=== PATIENT | male | born 1945 | race Hispanic/Latino ===

== ENCOUNTER 2023-10-19 08:50 | Day surgery (SDC) | payer OTHER ==
[2023-10-19] VITALS (16 sets, daily range): BP systolic 74–118; BP diastolic 43–61; PULSE 75–85; RESP 15–16
[~2023-10-19] VITALS: Ht 167.6 cm; Wt 135.2 kg
[~2023-10-19 08:50] MED LIST: 0.9%NACL 1000ML 1,000 ML IV ONE
[2023-10-19] MEDS ORDERED: ATOR10 PO (12:21)
[2023-10-19] MEDS ORDERED: SERT-440 PO (12:21)
[2023-10-19] MEDS ORDERED: CHOL2000 PO (12:21)
[2023-10-19] MEDS ORDERED: CYAN-106 PO (12:21)
[2023-10-19] MEDS ORDERED: TRAM50TA4 PO (12:21)
[2023-10-19] MEDS ORDERED: LOSA100T59 PO (12:21)
[2023-10-19] MEDS ORDERED: FAMO40TA7 PO (12:21)
[2023-10-19] MEDS ORDERED: BUSP15TA3 PO (12:21)
[2023-10-19] MEDS ORDERED: EMPA25TA PO (12:21)
[2023-10-19] MEDS ORDERED: LEVO125T95 PO (12:21)
[2023-10-19] MEDS ORDERED: SEMA2PEN SQ (12:21)
[2023-10-19] MEDS ORDERED: CLOB30CR4 TP (12:21)
[2023-10-19] MEDS ORDERED: METF-527 PO (12:21)
[2023-10-19] MEDS ORDERED: CHLO25TA3 PO (12:21)
[2023-10-19] MEDS ORDERED: TRAZ-187 PO (12:21)
[2023-10-19] MEDS ORDERED: PROPOFOL 10 MG/ML 20ML VIAL IV ONE ×2 (13:02)
[2023-10-19] MEDS ORDERED: EPHEDRINE SULFATE 50 MG/ML AMPULE ONE (13:06)
[2023-10-19] MEDS: EPHEDRINE SULFATE 50 MG/ML AMPULE ONE (13:50)
== END 2023-10-19 15:00 | disposition home or self-care (01) ==
LOC: DAH 08:50
PROVIDERS: ATTEND Internal Medicine Gastroenterology
DX: R19.4 Change in bowel habit (principal); K92.1 Melena; R13.10 Dysphagia, unspecified; R14.0 Abdominal distension (gaseous); K44.9 Diaphragmatic hernia without obstruction or gangrene; K29.70 Gastritis, unspecified, without bleeding; I10 Essential (primary) hypertension; F32.A Depression, unspecified; E78.5 Hyperlipidemia, unspecified; F41.9 Anxiety disorder, unspecified; M19.90 Unspecified osteoarthritis, unspecified site; E11.9 Type 2 diabetes mellitus without complications; E66.01 Morbid (severe) obesity due to excess calories; G47.30 Sleep apnea, unspecified; Z79.84 Long term (current) use of oral hypoglycemic drugs; Z90.49 Acquired absence of other specified parts of digestive tract; Z68.42 Body mass index [BMI] 45.0-49.9, adult; Z86.010 Personal history of colon polyps; Z79.899 Other long term (current) drug therapy; Z98.890 Other specified postprocedural states
CPT/HCPCS: 82948 ×2; 43239; 43248; 45378; J7030 ×2; J3490 ×2; J2704 ×2; A4620; A4215; A4223; A7002; A4222; A4221; A4663; A4606; G0105